=== PATIENT | male | born 1960 | race Caucasian/White ===

== ENCOUNTER 2021-12-03 09:51 | Emergency (ER) | payer MEDICAID ==
[~2021-12-03] VITALS: Ht 177.8 cm; Wt 73.0 kg
[2021-12-03] MEDS ORDERED: IBUPROFEN 400MG TABLET PO ONE (13:15)
[2021-12-03] MEDS ORDERED: ACETAMINOPHEN 325MG TABLET PO ONE (13:15)
[2021-12-03 13:18] LABS: BASOPHILS % 0.1 % (0.0-2.0); EOSINOPHILS % 0.2 % (0.0-5.0); HEMATOCRIT. 44.8 % (42.0-52.0); HEMOGLOBIN. 15.2 g/dL (14.0-18.0); LYMPHOCYTES % 11.6 % (20.0-50.0); MEAN CORPUSCULAR HEMOGLOBIN 30.5 pg (28.0-32.0); MEAN PLATELET VOLUME 7.5 fl (7.4-10.4); MONOCYTES % 4.9 % (2.0-8.0); NEUTROPHILS % 83.2 % (40.0-76.0); PLATELET 217 x1000/uL (130-400); RED BLOOD CELL COUNT 4.97 mill/uL (4.7-6.1); RED CELL DISTRIBUTION WIDTH 13.9 % (11.6-14.6)
[2021-12-03 13:19] VITALS: BP 164/94
[2021-12-03 13:25] LABS: CHLORIDE 106 mEq/L (98-107)
[2021-12-03 15:40] LABS: CLARITY URINE CLEAR (CLEAR); COLOR URINE YELLOW (YELLOW); KETONES URINE 1+ (NEGATIVE); LEUKOCYTE ESTERASE URINE NEGATIVE (NEGATIVE); NITRITE URINE NEGATIVE (NEGATIVE); OCCULT BLOOD URINE NEGATIVE (NEGATIVE); PROTEIN URINE NEGATIVE (NEGATIVE); UROBILINOGEN URINE 0.2 E.U./dL (0.2-1.0)
== END 2021-12-03 17:12 | disposition home or self-care (01) ==
LOC: ER 09:51
DX: S80.12XA Contusion of left lower leg, initial encounter (principal); S37.92XA Contusion of unspecified urinary and pelvic organ, initial encounter; S31.001A Unspecified open wound of lower back and pelvis with penetration into retroperitoneum, initial encounter; Z88.0 Allergy status to penicillin; X58.XXXA Exposure to other specified factors, initial encounter; Y93.89 Activity, other specified; Y92.89 Other specified places as the place of occurrence of the external cause; Y99.8 Other external cause status
CPT/HCPCS: 36415; 73552; 74176; 80048; 81003; 85025; 99285